=== PATIENT | female | born 1990 | race Two or more races ===

== ENCOUNTER 2023-12-02 17:14 | Emergency (ER) | payer MEDICAID ==
[~2023-12-02] VITALS: Ht 160 cm; Wt 71.8 kg
[~2023-12-02 17:14] MED LIST: CEPH250C PO; IBUP-1455 PO; PRENCAP15
[2023-12-02 18:25] LABS: Urine Amorphous Crystal FEW /hpf (None Seen); Urine Bacteria FEW /hpf (None Seen); Urine Blood 3+ /uL (Negative); Urine Clarity Ex.Turbid (Clear); Urine Color Dark-Brown (Yellow); Urine Mucus FEW (None Seen); Urine Protein, UAD 2+ (Negative); Urine Urobilinogen Normal (Negative); Urine WBC 448 /hpf (0 - 5); Urine pH 6.5 (5.0-9.0)
[2023-12-02 18:48] VITALS: BP 131/78; PULSE 79; RESP 16; TEMP 98.8; O2SAT 96
[2023-12-02] MEDS ORDERED: CEFP200T15 PO (18:51)
== END 2023-12-02 19:40 | disposition home or self-care (01) ==
LOC: ER 17:14
DX: N12 Tubulo-interstitial nephritis, not specified as acute or chronic (principal); F17.210 Nicotine dependence, cigarettes, uncomplicated; F15.90 Other stimulant use, unspecified, uncomplicated; Z88.0 Allergy status to penicillin; Z79.899 Other long term (current) drug therapy
CPT/HCPCS: 81001